=== PATIENT | male | born 1990 | race Caucasian/White ===

== ENCOUNTER 2017-11-27 11:54 | Emergency (ER) | payer MEDICAID ==
--- NOTE | 2017-11-27 12:08 | EKG ---
FACILITY: [facility] PATIENT NAME: RPIYANKA CRAIG : [id number] MR: [id number] V: [id number] EXAM DATE: ORDERING PHYSICIAN: RODNEY BUENO TECHNOLOGIST: MIKAELA Farmer Reason : ARRHYTHMIA Blood Pressure : / mmHG Vent. Rate : 087 BPM Atrial Rate : 087 BPM P-R Int : 148 ms QRS Dur : 112 ms QT Int : 360 ms P-R-T Axes : 070 085 060 degrees QTc Int : 433 ms Normal sinus rhythm Normal ECG When compared with ECG of 12-MAY-2016 17:35, No significant change was found Confirmed by TABITHA WALKER ([id number]) on 11/27/2017 8:43:49 PM Referred By: XIMENA Confirmed By:TABITHA WALKER
--- NOTE | 2017-11-27 12:14 | ER Report ---
History and Physical Time Seen By MD: 12:03 Hx. of Stated Complaint: PT REPORTS ABNORMAL HEART RATE, VARIES 180S TO 50S HPI/ROS CHIEF COMPLAINT: Tachycardia HISTORY OF PRESENT ILLNESS: Patient has been having episodes of tachycardia for the past few years. He had an episode today while at rest with a heart rate recorded on his wrist watch over 180 bpm. He is had episodes that sometimes go up to 220 bpm and last for seconds to a few minutes. He feels anxious during these episodes but denies any chest pain. He's been seen once before in this emergency department for similar episode 2 years ago and had a negative workup and negative Holter monitor. Patient states that symptoms seem to be worse whenever he tries to exert himself. Denies any stimulant or tobacco use. He has a primary care provider down in [place]. REVIEW OF SYSTEMS: Respiratory: No cough, no dyspnea. Cardiovascular: Palpitations and racing heart rate without chest pain Gastrointestinal: No vomiting, no abdominal pain. Musculoskeletal: No back pain. Allergies: Coded Allergies: No Known Drug Allergies (Verified , 11/27/17) Home Meds No Active Prescriptions or Reported Meds Past Medical/Surgical History Noncontributory Hx Substance Use Disorder: No Hx Alcohol Use: No Constitutional Vital Sign - Last 24 Hours 11/27/17 11/27/17 11/27/17 11/27/17 11:59 11:59 12:04 12:14 Temp 98.1 Pulse 95 96 85 Resp 18 36 22 B/P (MAP) 136/95 136/95 (109) Pulse Ox 96 99 O2 Delivery Room Air 11/27/17 11/27/17 11/27/17 11/27/17 12:30 12:34 12:49 13:00 Pulse 73 83 Resp 10 16 B/P (MAP) 123/71 (88) 122/75 (91) 11/27/17 13:04 Pulse 77 Resp 7 Physical Exam General/Constitutional: Patient is awake, alert, nontoxic and in no acute respiratory distress. Head: Normocephalic and atraumatic. Eyes: Conjunctival clear, Pupils are equal and reactive to light. Extraocular muscles are intact and symmetrical. Sclera are clear and anicteric. Ears:External canals are clear. Tympanic membranes are clear with normal landmarks and light reflex. Nares: No rhinorrhea or bleeding. Turbinates are pink and moist. Oropharyngeal: Mucous membranes are moist. There is no pharyngeal erythema or exudate. Neck: Supple, no adenopathy. Cardiovascular: Heart is regular rate and rhythm without audible murmurs, rubs or gallops. Pulmonary: Lungs are clear to auscultation bilaterally. There are no wheezes, rales, or rhonchi. Chest rise is symmetrical Abdomen: Soft, nontender, no guarding or peritoneal signs. Extremities: No gross deformities, No peripheral cyanosis. Able to move all 4 extremities. Neuro: Alert and oriented X3, Patient has normal gait. Skin: No rashes, skin is warm dry and well perfused. Medical Decision Making Data Points Result Diagram: 11/27/17 1214 11/27/17 1214 Laboratory Hematology Test 11/27/17 12:14 Red Blood Count 5.76 M/uL (4.00-5.60) Mean Corpuscular Volume 86.7 fL (80.0-96.0) Mean Corpuscular Hemoglobin 30.4 pg (26.0-33.0) Mean Corpuscular Hemoglobin Concent 35.0 g/dL (32.0-36.0) Red Cell Distribution Width 12.7 % (11.5-14.5) Mean Platelet Volume 8.6 fL (7.2-11.1) Neutrophils (%) (Auto) 55.3 % (39.4-72.5) Lymphocytes (%) (Auto) 35.4 % (17.6-49.6) Monocytes (%) (Auto) 6.9 % (4.1-12.4) Eosinophils (%) (Auto) 1.3 % (0.4-6.7) Basophils (%) (Auto) 1.1 % (0.3-1.4) Nucleated RBC Relative Count (auto) 0.1 /100WBC Neutrophils # (Auto) 2.8 K/uL (2.0-7.4) Lymphocytes # (Auto) 1.8 K/uL (1.3-3.6) Monocytes # (Auto) 0.4 K/uL (0.3-1.0) Eosinophils # (Auto) 0.1 K/uL (0.0-0.5) Basophils # (Auto) 0.1 K/uL (0.0-0.1) Nucleated RBC Absolute Count (auto) 0.00 K/uL Sodium Level 141 mmol/L (137-145) Potassium Level 3.7 mmol/L (3.5-5.0) Chloride Level 103 mmol/L (98-107) Carbon Dioxide Level 24 mmol/L (22-30) Blood Urea Nitrogen 20 mg/dl (9-21) Creatinine 1.10 mg/dl (0.66-1.25) Glomerular Filtration Rate Calc > 60.0 Random Glucose 92 mg/dl (75-110) Calcium Level 10.0 mg/dl (8.4-10.2) Total Bilirubin 1.0 mg/dl (0.2-1.3) Aspartate Amino Transf (AST/SGOT) 23 U/L (0-35) Alanine Aminotransferase (ALT/SGPT) 21 U/L (0-56) Alkaline Phosphatase 60 U/L (0-126) Total Protein 7.4 gm/dl (6.3-8.2) Albumin 4.5 g/dl (3.5-5.0) Chemistry Test 11/27/17 12:14 White Blood Count 5.1 k/uL (4.5-11.0) Red Blood Count 5.76 M/uL (4.00-5.60) Hemoglobin 17.5 g/dL (14.0-18.0) Hematocrit 49.9 % (42.0-52.0) Mean Corpuscular Volume 86.7 fL (80.0-96.0) Mean Corpuscular Hemoglobin 30.4 pg (26.0-33.0) Mean Corpuscular Hemoglobin Concent 35.0 g/dL (32.0-36.0) Red Cell Distribution Width 12.7 % (11.5-14.5) Platelet Count 280 K/uL (150-450) Mean Platelet Volume 8.6 fL (7.2-11.1) Neutrophils (%) (Auto) 55.3 % (39.4-72.5) Lymphocytes (%) (Auto) 35.4 % (17.6-49.6) Monocytes (%) (Auto) 6.9 % (4.1-12.4) Eosinophils (%) (Auto) 1.3 % (0.4-6.7) Basophils (%) (Auto) 1.1 % (0.3-1.4) Nucleated RBC Relative Count (auto) 0.1 /100WBC Neutrophils # (Auto) 2.8 K/uL (2.0-7.4) Lymphocytes # (Auto) 1.8 K/uL (1.3-3.6) Monocytes # (Auto) 0.4 K/uL (0.3-1.0) Eosinophils # (Auto) 0.1 K/uL (0.0-0.5) Basophils # (Auto) 0.1 K/uL (0.0-0.1) Nucleated RBC Absolute Count (auto) 0.00 K/uL Glomerular Filtration Rate Calc > 60.0 Calcium Level 10.0 mg/dl (8.4-10.2) Total Bilirubin 1.0 mg/dl (0.2-1.3) Aspartate Amino Transf (AST/SGOT) 23 U/L (0-35) Alanine Aminotransferase (ALT/SGPT) 21 U/L (0-56) Alkaline Phosphatase 60 U/L (0-126) Total Protein 7.4 gm/dl (6.3-8.2) Albumin 4.5 g/dl (3.5-5.0) EKG/Imaging EKG Interpretation EKG shows normal sinus rhythm with ventricular rate of 87 bpm Monitor Interpretation: Normal Sinus Rhythm ED Course/Re-evaluation Clinical Indication for ER IV: IV Access ED Course 11/27/2017 1:16:17 pm plan at this time will be to place the patient 48 hour Holter monitor results will go to his primary care provider, Dr. Minor Foster. He was counseled to schedule a follow-up appointment with his doctor Dr. Minor Foster in [place]. With recommendation for further cardiology follow-up Decision to Disposition Date: November 27, 2017 Decision to Disposition Time: 13:16 Depart Departure Latest Vital Signs Vital Signs Date Time Temp Pulse Resp B/P (MAP) Pulse Ox O2 Delivery O2 Flow Rate FiO2 11/27/17 13:04 77 7 11/27/17 13:00 122/75 (91) 11/27/17 12:04 99 11/27/17 11:59 98.1 Room Air Impression: Primary Impression: Tachycardia Condition: Improved Disposition: HOME OR SELF-CARE New Scripts No Active Prescriptions or Reported Meds Patient Instructions: Tachycardia (ED) Additional Instructions: You should avoid alcohol and any type of stimulants including tobacco or caffeine. Call and schedule follow-up appointment with Dr. Minor Foster for further workup of her tachycardia. should receive results of your Holter monitor once it is been officially read. If Dr. Foster does not receive the report, you can request a copy of the report from medical records RODNEY BUENO MD November 27, 2017 12:14
[2017-11-27 12:28] LABS: PLATELET COUNT, AUTOMATED 280 K/uL (150-450)
[2017-11-27 13:35] VITALS: BP 118/80
== END 2017-11-27 13:37 | disposition home or self-care (01) ==
LOC: ER 11:59
DX: R00.0 Tachycardia, unspecified (principal)
CPT/HCPCS: 82040; 82247; 82310; 82374; 82435; 82565; 82947; 84075; 84132; 84155; 84295; 84443; 84450; 84460; 84520; 85025; 93005; 93225; 99284

== ENCOUNTER 2017-12-14 20:42 | Emergency (ER) | payer MEDICAID ==
--- NOTE | 2017-12-14 20:56 | ER Report ---
History and Physical Time Seen By MD: 20:56 Hx. of Stated Complaint: Pt was watching [employer] finals and experinced dizzy and nausea and an elevated heart rate (200) on apple watch. Pt states his chest felt funny and tried to come here as quick as possible to get an EKG. HPI/ROS CHIEF COMPLAINT: racing heart HISTORY OF PRESENT ILLNESS: This is a 27 year old male. He was sitting at home when he had sudden onset of heart racing. Apple watch timed the rate at 190- 200. Came to the ER, but by then the racing had stopped. Associated symptoms of dizziness when this was going on. Feels okay now. Had a Holter monitor recently , which showed a few episodes of premature beats and some sinus tachycardia. He did not have any episodes of racing when he was wearing the Holter. He has not had a chance to follow-up with his regular doctor since then. No other symptoms at this time. Allergies: Coded Allergies: No Known Drug Allergies (Verified , 11/27/17) Home Meds No Active Prescriptions or Reported Meds Reviewed Nurses Notes: Yes Hx Substance Use Disorder: No Hx Alcohol Use: No Constitutional Vital Sign - Last 24 Hours 12/14/17 12/14/17 12/14/17 12/14/17 20:45 20:46 20:51 20:57 Temp 98.1 Pulse 93 90 Resp 16 6 B/P (MAP) 146/92 (110) 146/92 140/83 (102) Pulse Ox 98 99 O2 Delivery Room Air 12/14/17 12/14/17 12/14/17 12/14/17 21:00 21:12 21:27 21:32 Pulse 80 77 79 Resp 12 11 B/P (MAP) 129/90 (103) Pulse Ox 94 95 94 12/14/17 21:47 Pulse 79 Pulse Ox 98 Physical Exam General Appearance: The patient is alert, has no immediate need for airway protection and no current signs of toxicity Respiratory: Chest is non tender, lungs are clear to auscultation. Cardiac: regular rate and rhythm DIFFERENTIAL DIAGNOSIS: After history and physical exam differential diagnosis was considered for history of tachycardia times, episode tonight which is now back to normal and vital signs are stable. Medical Decision Making Data Points Result Diagram: 12/14/172113 Laboratory Hematology Test 12/14/17 21:14 Sodium Level 142 mmol/L (137-145) Potassium Level 3.3 mmol/L (3.5-5.0) Chloride Level 103 mmol/L (98-107) Carbon Dioxide Level 25 mmol/L (22-30) Blood Urea Nitrogen 16 mg/dl (9-21) Creatinine 1.10 mg/dl (0.66-1.25) Glomerular Filtration Rate Calc > 60.0 Random Glucose 108 mg/dl (75-110) Calcium Level 9.8 mg/dl (8.4-10.2) Total Bilirubin 0.8 mg/dl (0.2-1.3) Aspartate Amino Transf (AST/SGOT) 20 U/L (0-35) Alanine Aminotransferase (ALT/SGPT) 25 U/L (0-56) Alkaline Phosphatase 62 U/L (0-126) Troponin I < 0.012 ng/ml C-Reactive Protein < 0.5 mg/dl (<1.0) Total Protein 7.4 gm/dl (6.3-8.2) Albumin 4.4 g/dl (3.5-5.0) Chemistry Test 12/14/17 21:14 Glomerular Filtration Rate Calc > 60.0 Calcium Level 9.8 mg/dl (8.4-10.2) Total Bilirubin 0.8 mg/dl (0.2-1.3) Aspartate Amino Transf (AST/SGOT) 20 U/L (0-35) Alanine Aminotransferase (ALT/SGPT) 25 U/L (0-56) Alkaline Phosphatase 62 U/L (0-126) Troponin I < 0.012 ng/ml C-Reactive Protein < 0.5 mg/dl (<1.0) Total Protein 7.4 gm/dl (6.3-8.2) Albumin 4.4 g/dl (3.5-5.0) EKG/Imaging EKG Interpretation 12 lead EKG: Rhythm: Normal sinus rhythm, rate 74 [place]: normal QRS: normal ST segments: normal ED Course/Re-evaluation ED Course Suspect this is from episodes of supraventricular tachycardia. Normal EKG and labs tonight. Recommend follow-up with cardiology. Decision to Disposition Date: December 14, 2017 Decision to Disposition Time: 21:50 Depart Departure Latest Vital Signs Vital Signs Date Time Temp Pulse Resp B/P (MAP) Pulse Ox O2 Delivery O2 Flow Rate FiO2 12/14/17 21:47 79 98 12/14/17 21:27 11 12/14/17 21:00 129/90 (103) 12/14/17 20:46 98.1 Room Air Impression: Primary Impression: Tachycardia Condition: Improved Disposition: HOME OR SELF-CARE New Scripts No Active Prescriptions or Reported Meds Patient Instructions: Atrial Tachycardia (ED), Supraventricular Tachycardia (ED ) Additional Instructions: We do not know for sure why you have episodes of heart racing. We recommend follow-up with cardiology for further evaluation. No other changes or medicines at this time. ANNABEL CHIRINOS MD December 14, 2017 20:56
[2017-12-14 21:00] VITALS: BP 129/90
--- NOTE | 2017-12-14 21:18 | EKG ---
FACILITY: [facility] PATIENT NAME: PRIYANKA CRAIG : [id number] MR: [id number] V: [id number] EXAM DATE: ORDERING PHYSICIAN: ANNABEL CHIRINOS TECHNOLOGIST: CHRIS Farmer Reason : Blood Pressure : / mmHG Vent. Rate : 074 BPM Atrial Rate : 074 BPM P-R Int : 176 ms QRS Dur : 110 ms QT Int : 368 ms P-R-T Axes : 066 086 065 degrees QTc Int : 408 ms Normal sinus rhythm with sinus arrhythmia Normal ECG When compared with ECG of 27-NOV-2017 12:00, No significant change was found Confirmed by BRYON NOLAN ([id number]) on 12/15/2017 6:15:59 AM Referred By: TARAN Confirmed By:BRYON NOLAN
== END 2017-12-14 22:02 | disposition home or self-care (01) ==
LOC: ER 21:00
DX: R00.0 Tachycardia, unspecified (principal)
CPT/HCPCS: 82040; 82247; 82310; 82374; 82435; 82565; 82947; 84075; 84132; 84155; 84295; 84450; 84460; 84484; 84520; 86140; 93005; 99284